=== PATIENT | female | born 1970 | race Caucasian/White ===

== ENCOUNTER 2022-02-21 13:38 | Emergency (ER) | payer OTHER, SELFPAY ==
--- NOTE | ~2022-02-21 | XR_ITS ---
EXAMINATION: XR elbow RT min 3V DATE: 02/21/2022 14:38 INDICATION: Right elbow pain. Right elbow hyperextension. TECHNIQUE: 4 views of right elbow were obtained. COMPARISON: None. FINDINGS: Bone alignment is normal. No fracture. Joint spaces are well maintained. There is an enthes ophyte at lateral humeral epicondyle. There is no elbow joint effusion. IMPRESSION: 1. No fracture. Reviewed, dictated and finalized at location A. IMPRESSION: 1. No fracture.
[2022-02-21 13:58] VITALS: BP 130/79; PULSE 103; RESP 18; TEMP 36.3; O2SAT 99
--- NOTE | 2022-02-21 14:47 | ED.UPPEXIN ---
HPI - Extremity Injury (Upper) General Chief Complaint: Extremity Injury, Upper Stated Complaint: work related injury Time Seen by Provider: 02/21/22 14:38 Source: patient and RN notes reviewed Mode of arrival: ambulatory Limitations: no limitations History of Present Illness HPI narrative: 51-year-old female presents concern for pain to the right upper extremity. 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 She reports her wrist and arm bent in an awkward position she immediately had pain in her wrist. She reports the wrist pain has turned into elbow pain, wrist pain has decreased significantly. She reports however now her elbow pain is significant and is radiating to the shoulder and into the side of the neck. She reports digits 3 and 4 feel like they are asleep. denies any neck pain at the time of the injury. She denies any blunt trauma. She denies bruising, swelling, redness, warmth, open skin. She reports she has seen her works telehealth doctor twice and was prescribed ibuprofen, methocarbamol, diclofenac gel. She reports she is using most things with minimal relief. Related Data Home Medications Medication Instructions Recorded Confirmed diclofenac sodium 1 % topical gel 1 ea topical DIRECTED 02/21/22 02/21/22 ibuprofen 800 mg tablet 800 mg TID 02/21/22 02/21/22 methocarbamol 750 mg tablet 750 mg HS 02/21/22 02/21/22 Allergies Allergy/AdvReac Type Severity Reaction Status Date / Time codeine Allergy Unknown Verified 02/21/22 14:11 ketorolac Allergy Unknown Verified 02/21/22 14:11 Review of Systems Review of Systems: CONSTITUTIONAL: Denies malaise, chills, sweats, or fever. SKIN: Denies rash or itching, open skin, laceration, abrasion, redness, warmth, swelling. MUSCULOSKELETAL: Reports right upper extremity pain NEUROLOGIC: Denies numbness, weakness All systems reviewed & are unremarkable except as noted in HPI and below [facility] Family History Family History (Updated 12/30/15 @ 23:19 by DOCTOR UNKNOWN) Other Acute myocardial infarction Social History Social History Smoking status: Never smoker Second hand tobacco smoke exposure: Yes Alcohol intake: never Comments At time of signature, agree with nursing past medical, surgical, social and family history. There is no relevant family history pertinent to the presenting complaint Exam Narrative: GENERAL: Well-appearing, well-nourished, and in no acute distress. HEAD: Normocephalic, atraumatic. EYES: PERRLA, conjunctivae clear NECK: Supple. CHEST: Speaks in full sentences. No respiratory distress. HEART: Regular rate and rhythm. Normal and equal peripheral pulses. EXTREMITIES: Right upper extremity has normal grossly strength and sensation, limited range of motion. No edema or ecchymosis. Normal sensation with sensitivity to light touch and pain. No point tenderness. No open wounds, no skin tenting, no devitalized tissue or atrophy, no trophic changes, no obvious deformity, alignment normal, nearby joints and structures intact. Distal pulses palpable and equal bilaterally, skin warm, dry, pink. Capillary refill less than 3 seconds. SKIN: Warm, dry, no rash. NEURO: Alert and oriented x3. PSYCH: Normal mood and affect Course Course Emergency Course: Patient is aware of diagnosis, understands and agrees to treatment plan. Anticipatory guidance given. Patient agrees to follow-up as directed and is aware of reasons to seek care at the emergency department. Portions of this record may have been created with voice recognition software Level of Care: Express Care Visit Vital Signs Vital signs: Vital Signs Temperature 97.4 F L 02/21/22 13:58 Pulse Rate 103 H 02/21/22 13:58 Respiratory Rate 18 02/21/22 13:58 Blood Pressure 130/79 02/21/22 13:58 Pulse Oximetry 99 02/21/22 13:58 Oxygen Delivery Room Air 02/21/22 13:58 Temperature
== END 2022-02-21 15:10 | disposition home or self-care (01) ==
PROVIDERS: Emergency Provider Nurse Practitioner; PCP Nurse Practitioner Adult Health
DX: M77.8 Other enthesopathies, not elsewhere classified (principal)
CPT/HCPCS: 73080; 99213; A4565; G0463

== ENCOUNTER 2022-03-21 15:57 | Outpatient (CLI) | payer OTHER, SELFPAY ==
--- NOTE | ~2022-03-21 | CT_ITS ---
EXAMINATION: CT abdomen pelvis wo con DATE: 03/21/2022 16:15 INDICATION: Right lower quadrant abdominal pain. Rectal pain. TECHNIQUE: Computed tomography (CT) of the abdomen and pelvis was performed without intravenous contr ast. Automated exposure control and iterative reconstruction technique were employed. The dose-length product was 1098.59 mGy-cm. COMPARISON: None. FINDINGS: The visualized portions of the lung bases demonstrate minimal atelectasis. No pleural effus ion. The heart size is normal. No pericardial effusion. There is diffuse hepatic steatosis. There are changes of cholecystectomy. The spleen, pancreas, adrenal glands, and kidneys are normal. There is n o urolithiasis. There are no dilated loops of bowel. The appendix is normal. There are no dilated loo ps of bowel. There are no pathologically enlarged lymph nodes. There is no free intraperitoneal fluid . There are changes of anterior and posterior fusion procedures at L5-S1. There is mild thoracolumbar spondylosis. IMPRESSION: 1. Diffuse hepatic steatosis. Reviewed, dictated and finalized at location B.
== END 2022-03-21 15:58 ==
LOC: MICIMG 15:58
PROVIDERS: PCP Nurse Practitioner Adult Health; Visit Provider Nurse Practitioner Adult Health
DX: R10.9 Unspecified abdominal pain (principal); K76.0 Fatty (change of) liver, not elsewhere classified
CPT/HCPCS: 74176

== ENCOUNTER 2022-03-24 09:38 | Outpatient (CLI) | payer OTHER, SELFPAY ==
--- NOTE | ~2022-03-24 | MR_ITS ---
EXAMINATION: MR elbow RT wo con DATE: 03/24/2022 10:31 INDICATION: Right elbow pain TECHNIQUE: Magnetic resonance imaging (MRI) of the right elbow was performed without intravenous cont rast. Sequences included coronal, axial, and sagittal PD-weighted FS FSE and coronal, axial, and sagi ttal PD-weighted FSE. COMPARISON: None FINDINGS: Osseous/other: Normal alignment. Normal marrow signal with no marrow edema, fracture, osteochondral lesion or abnor mal marrow replacing process. Tendons: Triceps, biceps brachii and brachialis tendons are normal. Mild tendinopathy without discrete tear at the medial and lateral epicondylar origins of the of the common flexor and common extensor tendon wa ds respectively. Ligaments: The medial and lateral collateral ligament complexes are normal. Cubital tunnel: Cubital tunnel is unremarkable with normal signal and caliber of the ulnar nerve. Fluid: Physiologic amount of fluid the elbow joint. IMPRESSION: 1. Mild tendinopathy without discrete tears at the medial and lateral epicondylar origins of the comm on flexor and extensor tendon wads respectively. Reviewed, dictated and finalized at location A. IMPRESSION: 1. Mild tendinopathy without discrete tears at the medial and lateral epicondyl ar origins of the common flexor and extensor tendon wads respectively.
== END 2022-03-24 09:39 | disposition home or self-care (01) ==
PROVIDERS: PCP Nurse Practitioner Adult Health; Visit Provider Orthopaedic Surgery
DX: M25.521 Pain in right elbow (principal)
CPT/HCPCS: 73221

== ENCOUNTER 2022-04-04 01:37 | Day surgery (SDC) | payer OTHER, SELFPAY ==
[2022-03-28 12:35] VITALS: BMI 32.5
--- NOTE | 2022-04-03 17:00 | PM.HPGS ---
History of Present Illness History of Present Illness Consent: Risks, benefits, and alternatives have been discussed and questions answered. Patient agrees to proceed with procedure. Chief complaint: Change in bowel habits Narrative: Anna Wall is a 51 year old female referred for colon cancer screening. Review of Systems Review of Systems: All systems reviewed & are unremarkable except as noted in HPI and below Gastrointestinal: Comments: Stools have been narrow lately PMFSH Past Medical History Medical History Claustrophobia Diabetes Type 2 Triceps strain Surgical History Surgical History Bartholin cyst removal H/O section x4 History of cholecystectomy History of hysterectomy 2000 History of knee surgery Left knee Skin cancer nose x3 with skin grafts Family History Family History Other Acute myocardial infarction Diabetes mellitus Hypertension Leukemia Lung cancer Neuropathy Social History Social History Smoking status: Never smoker Second hand tobacco smoke exposure: Yes Alcohol intake: never Substance use type: does not use Living arrangements: with family Gender identity (if verbalized by the patient): Female Spiritual care concerns: No Meds Home Medications and Allergies Home Medications Medication Instructions Recorded Confirmed Type ibuprofen 800 mg tablet 800 mg PO DAILY PRN Pain 02/21/22 04/04/22 History semaglutide 0.25 mg or 0.5 mg (2 0.5 mg subcut WEEKLY 03/28/22 04/04/22 History mg/1.5 mL) subcutaneous pen injector (Ozempic) Allergies Allergy/AdvReac Type Severity Reaction Status Date / Time codeine Allergy Unknown Nausea Verified 04/04/22 06:21 ketorolac Allergy Unknown Unknown Verified 04/04/22 06:21 Exam Const: General: alert Orientation/consciousness: patient oriented x3 Resp: Auscultation: clear to auscultation bilaterally Cardio: Rhythm: regular rhythm GI: GI Palp: Yes Soft to palpation and No Tenderness to palpation present (GI) Neuro: General: patient oriented x3 Assessment and Plan Assessment and plan (1) Colon cancer screening: Code(s): Z12.11 - Encounter for screening for malignant neoplasm of colon Status: Acute Assessment and Plan: Colonoscopy with possible biopsy or polypectomy or cautery or injection of substances.
[2022-04-04 06:22] LABS: Glucose Point of Care 334 mg/dl (65-105)
[2022-04-04 06:23] VITALS: BP 124/78; PULSE 106; RESP 16; TEMP 36.3; O2SAT 99
[2022-04-04] MEDS: LACTATED RINGERS 1,000 ML 150 ML IV CONT (06:25)
--- NOTE | 2022-04-04 07:18 | WPDANESEPPF ---
Anes - Initial Pre Proc Eval Procedure: Operation Date: 04/04/22 07:30 Proposed Procedures p Colonoscopy - Dawson Jones MD Date/Time: 04/04/22 07:18 Surgeon: Dawson Jones MD Pre Op Diagnosis: Change in bowel habits Patient Data Age: 51 Gender: F Height: 1.75 m Weight: 101.5 kg Last Vital Signs Temp 97.3 F L 04/04/22 06:23 Pulse 106 H 04/04/22 06:23 Resp 16 04/04/22 06:23 BP 124/78 04/04/22 06:23 Pulse Ox 99 04/04/22 06:23 O2 Del Method Room Air 04/04/22 06:23 Allergies Allergy/AdvReac Type Severity Reaction Status Date / Time codeine Allergy Unknown Nausea Verified 04/04/22 06:21 ketorolac Allergy Unknown Unknown Verified 04/04/22 06:21 Home Medications Medication Instructions Recorded Confirmed Type ibuprofen 800 mg tablet 800 mg PO DAILY PRN Pain 02/21/22 04/04/22 History semaglutide 0.25 mg or 0.5 mg (2 0.5 mg subcut WEEKLY 03/28/22 04/04/22 History mg/1.5 mL) subcutaneous pen injector (Ozempic) Laboratory Tests 04/04/22 06:19 POC Capillary Glucose 334 mg/dl H mg/dl (65-105) Patient hx anesthesia problems: none Family hx anesthesia problems: none Results Review: All pre-operative results and documents have been reviewed as part of the pre-operative evaluation. [facility] Past Medical History Medical History (Updated 04/03/22 @ 17:00 by Dawson Jones MD) Claustrophobia Diabetes Type 2 Triceps strain Surgical History Surgical History Bartholin cyst removal H/O section x4 History of cholecystectomy History of hysterectomy 2000 History of knee surgery Left knee Skin cancer nose x3 with skin grafts Family History Family History Other Acute myocardial infarction Diabetes mellitus Hypertension Leukemia Lung cancer Neuropathy Social History Social History Smoking status: Never smoker Second hand tobacco smoke exposure: Yes Alcohol intake: never Substance use type: does not use Living arrangements: with family Gender identity (if verbalized by the patient): Female Spiritual care concerns: No Anes - Eval Final PreProcedure Day of Procedure 04/04/22 07:18 Patient weight: obese Heart: regular rate and rhythm Lungs: clear to auscultation Neurological: alert and oriented Last oral intake: >/= 8 hours ASA classification: II Emergent: no Anesthetic plan: proceed Anesthesia type and monitoring: general GIVS and standard monitoring Results Review: All pre-operative results and documents have been reviewed as part of the pre-operative evaluation. Informed Consent: The patient's anesthetic plan and its attendant risks and benefits were discussed with the patient/family/POA. Questions were solicited and answers provided to the satisfaction of the patient/family/POA.
[2022-04-04 07:55] VITALS: BP 117/77; PULSE 95; RESP 16; O2SAT 96
[2022-04-04 08:04] VITALS: BP 114/77; PULSE 99; RESP 24; O2SAT 97
[2022-04-04 08:14] VITALS: BP 120/80; PULSE 91; RESP 21; O2SAT 96
== END 2022-04-04 08:23 | disposition home or self-care (01) ==
PROVIDERS: PCP Nurse Practitioner Adult Health; Visit Provider Internal Medicine Gastroenterology
PROC: 0DJD8ZZ Inspection of Lower Intestinal Tract, Via Natural or Artificial Opening Endoscopic (ICD-10-PCS; CPT 45378; principal; 2022-04-04 07:30)
DX: Z12.11 Encounter for screening for malignant neoplasm of colon (principal); E11.9 Type 2 diabetes mellitus without complications; Z79.899 Other long term (current) drug therapy; E66.9 Obesity, unspecified; Z68.33 Body mass index [BMI] 33.0-33.9, adult
CPT/HCPCS: 45378; 82948; J2704; J7120

== ENCOUNTER → 2022-04-20 14:39 | Outpatient (CLI) | payer OTHER, SELFPAY ==
--- NOTE | ~2022-04-20 | US_ITS ---
EXAMINATION: US transvaginal DATE: 04/20/2022 15:09 INDICATION: Rectal pain while sitting, patient status post hysterectomy TECHNIQUE: Multiple endovaginal sonographic images of the pelvis were obtained. COMPARISON: None. FINDINGS: The uterus is surgically absent. The right ovary measures 1.7 x 1.3 x 1.5 cm. Visualization is limited by adjacent bowel. The left ovary measures 2.3 x 1.2 x 1.2 cm. There is normal vascular f low in the ovaries. There is no free fluid in the pelvis. IMPRESSION: 1. No sonographic correlate for the patient's symptoms. Reviewed, dictated and finalized at location F. [employer]
== END ==
PROVIDERS: PCP Nurse Practitioner Adult Health; Visit Provider Nurse Practitioner Adult Health
DX: K62.89 Other specified diseases of anus and rectum (principal)
CPT/HCPCS: 76830

== ENCOUNTER 2024-01-27 16:56 | Emergency (ER) | payer OTHER, SELFPAY ==
[2024-01-27 17:24] VITALS: BP 138/82; PULSE 97; RESP 18; TEMP 36.6; O2SAT 99
--- NOTE | 2024-01-27 17:46 | ED.EYEPROB ---
HPI - Eye Problem General Chief complaint: Eye Problems Stated complaint: eye irritation Time Seen by Provider: 01/27/24 17:46 Source: patient Mode of arrival: ambulatory Limitations: no limitations History of Present Illness HPI Narrative: 53-year-old female presents with complaint of right eye redness, clear drainage, light sensitivity, pain for 3 days. Symptoms started while cleaning out should. Something flew into eye. Patient unsure if she still has foreign body present but states she did irrigate right eye at home. All systems reviewed and negative except as noted above. Related Data Allergies Allergy/AdvReac Type Severity Reaction Status Date / Time codeine Allergy Unknown Nausea Verified 01/27/24 17:28 ketorolac Allergy Unknown Rash Verified 01/27/24 17:28 Review of Systems Review of Systems: CONSTITUTIONAL: Denies fever, chills, or sweats. EYES: Denies visual changes . Reports right eye redness, light sensitivity, clear discharge. ENT: Denies rhinorrhea, congestion, sore throat, or otalgia. CARDIOVASCULAR: Denies chest pain, palpitations, or edema. RESPIRATORY: Denies cough or dyspnea. GASTROINTESTINAL: Denies abdominal pain, nausea, vomiting, or diarrhea. GENITOURINARY: Denies dysuria or hematuria. SKIN: Denies rash or itching. MUSCULOSKELETAL: Denies back pain, joint pain, or myalgia. NEUROLOGIC: Denies headache, numbness, or weakness. PSYCHIATRIC: Denies anxiety or depression. All other systems reviewed are negative, except as documented in HPI. [facility] Past Medical History Medical History Claustrophobia Diabetes Type 2 Strain of right elbow Triceps strain Surgical History Surgical History Bartholin cyst removal H/O section x4 History of cholecystectomy History of hysterectomy 2000 History of knee surgery Left knee Skin cancer nose x3 with skin grafts Family History Family History Other Acute myocardial infarction Diabetes mellitus Hypertension Leukemia Lung cancer Neuropathy Social History Social History Smoking status: Never smoker Second hand tobacco smoke exposure: Yes Alcohol intake: never Substance use type: does not use Living arrangements: with family Occupation/Education: occupation Gender identity (if verbalized by the patient): Female Spiritual care concerns: No Comments At time of signature, agree with nursing past medical, surgical, social and family history. There is no relevant family history pertinent to the presenting complaint. Exam Narrative: GENERAL: This is a well-nourished, well-developed patient, in no apparent distress. HEAD: normocephalic, atraumatic. EYES: PERRL. Sclera and conjunctivae right eye erythematous and injected. Clear drainage noted. Topical anesthetic was instilled with good anesthesia using 1gtt of opth anesthetic agent (tetracaine). Fluorescein stain of the R eye was performed. Corneal abrasion noted at 6 o'clock. NO FB, ulcer or dendritic lesions. Upper lid was everted and no FB or lesions were noted. Normal saline irrigation eye solution was performed and the patient tolerated the procedure well, no adverse reaction or complications. EARS: External ears mary NOSE: External nose normal NECK: Neck supple, non-tender without lymphadenopathy, masses or thyromegaly. CARDIOVASCULAR: Regular rate and rhythm without murmurs, gallops, or rubs. RESPIRATORY: Clear to auscultation. Breath sounds equal bilaterally. No wheezes, rales, or rhonchi. SKIN: warm, Dry, intact with no suspicious lesions or rash, good texture and turgor. NEURO: awake, alert, and oriented to person, place and time. There were no obvious focal neurologic abnormalities. EXTREMITIES: No joint tenderness, effusion
== END 2024-01-27 18:00 | disposition home or self-care (01) ==
PROVIDERS: Emergency Provider Nurse Practitioner Family; PCP Nurse Practitioner Adult Health
DX: S05.01XA Injury of conjunctiva and corneal abrasion without foreign body, right eye, initial encounter (principal); X58.XXXA Exposure to other specified factors, initial encounter; E11.9 Type 2 diabetes mellitus without complications
CPT/HCPCS: 99213; A9270; G0463

== ENCOUNTER 2025-03-23 08:26 | Emergency (ER) | payer OTHER, SELFPAY ==
[2025-03-23 08:35] VITALS: BP 121/63; PULSE 123; RESP 20; TEMP 36.7; O2SAT 97
--- NOTE | 2025-03-23 08:35 | ED.URI ---
HPI - URI/Sore Throat General Chief Complaint: Upper Respiratory Infection Stated Complaint: URI symptoms Time Seen by Provider: 03/23/25 08:41 Source: patient and RN notes reviewed Mode of arrival: ambulatory Limitations: no limitations History of Present Illness HPI Narrative: 54-year-old female presents with concern of for 11 day history of sinus congestion, drainage, cough, ear pain. She reports aches and fever. She has taken some [id number] medications without relief. MD elicited complaint: cough Related Data Allergies Allergy/AdvReac Type Severity Reaction Status Date / Time ketorolac Allergy Mild Rash Verified 03/23/25 08:29 codeine AdvReac Intermediate Nausea Verified 03/23/25 08:29 Review of Systems Review of Systems: CONSTITUTIONAL: Reports malaise, fever. EYES: Denies visual changes, redness, or discharge. ENT: Reports rhinorrhea, congestion, otalgia CARDIOVASCULAR: Denies chest pain, palpitations, or edema. RESPIRATORY: Reports cough. Denies dyspnea. GASTROINTESTINAL: Denies abdominal pain, nausea, vomiting, diarrhea SKIN: Denies rash or itching. MUSCULOSKELETAL: Reports myalgia. NEUROLOGIC: Reports headache. All systems reviewed & are unremarkable except as noted in HPI and below PMFSH Past Medical History Medical History (Updated 03/23/25 @ 08:50 by Patt Cota NP) Diabetes Type 2 Surgical History Surgical History Bartholin cyst removal Skin cancer nose x3 with skin grafts History of cholecystectomy History of hysterectomy 1999 History of knee surgery Left knee H/O section x4 Family History Family History (Updated 11/10/24 @ 12:00 by Jia Deras MA) Mother Diabetes mellitus Hypertension Father Cancer Grandparent Diabetes mellitus Grandparent Heart disease Other Acute myocardial infarction Leukemia Lung cancer Neuropathy Social History Social History (Updated 11/10/24 @ 12:01 by Jia Deras MA) Smoking status: Never smoker Second hand tobacco smoke exposure: Yes Alcohol intake: never Substance use type: does not use Do You Feel Safe in your Home?: Yes Lack of Transportation: No Lack of Food: Never True Current Housing: I Have Housing Concerned About Future Housing: No Difficulty Paying Gas/Electric Bills: No Difficulty Paying for Meds: No Currently Unemployed: No Education: Associate Degree Difficulty w/ Childcare or Family Care: No Living arrangements: with family Occupation/Education: occupation Gender identity (if verbalized by the patient): Female Spiritual care concerns: No Agree to blood products: Yes Comments At time of signature, agree with nursing past medical, surgical, social and family history. There is no relevant family history pertinent to the presenting complaint Exam Narrative: GENERAL: Nontoxic-appearing, well-nourished, and in no acute distress. HEAD: Normocephalic EYES: PERRLA, conjunctivae clear ENT: Nares clear, turbinates edematous and erythematous. Mucous membranes moist. TM pearly perrin with dull light reflex bilaterally; no tragal tenderness. Oropharynx not erythematous without lesions. Tonsils not enlarged and without exudate, no drooling, no hoarseness, no trismus, uvula midline. NECK: Supple. No lymphadenopathy CHEST: Clear to auscultation, breath sounds equal. No wheezing, rhonchi, rales, or stridor. No respiratory distress, speaks in full sentences. Cough note HEART: Regular rate and rhythm. No murmur heard. SKIN: Warm, dry, no rash. NEURO: Alert and oriented x3. PSYCH: Normal mood and affect Course Course Emergency Course: Patient is aware of diagnosis, understands and agrees to treatment plan. Anticipatory guidance given. Patient agrees to follow-up as directed and is aware of reasons to seek care at the emergency department. Portions of this record may have been created with voice recognition software Level of Care: Express Care Visit Vital Signs Vital signs: Reviewed. MDM - URI/Sore Throat MDM Narrative Medical decision making narrative: Differential diagnosis considered: Bradley virus, strep pharyngitis, allergic rhinitis, upper respiratory tract infection, sinusitis, rhinosinusitis, nasopharyngitis. viral pharyngitis, otitis media, otitis externa, pneumonia, bronchitis, viral cough syndrome, viral syndrome, and influenza. Exam findings show no acute concerns or changes; patient is non-toxic appearing and is in no distress. Patient is appropriate for outpatient treatment and follow-up. Lab Data Attestation: I reviewed the patient's lab results. Critical Care Time Critical Care Time Critical Care Time: No Discharge Plan Discharge Clinical Impression: Sinobronchitis Patient Disposition: Home Condition: Stable Instructions: Antibiotic Form, Acute Bronchitis (ED) Additional Instructions: Take medication as prescribed Recommend antihistamine such as Benadryl at night time and Zyrtec or Tessa during the day Cough syrup may cause drowsiness; avoid driving or take it at night time. Also, recommend symptomatic treatment includes: rest, fluids, and increase humidity of the air at home. Recommend Acetaminophen as directed on the bottle to reduce fever, pain, headache. Avoid smoking/second-hand smoke. Please schedule a follow-up visit with your personal physician for further evaluation and treatment within 3-5days. If your symptoms persist, change or worsen significantly before you can contact your personal physician then please, without delay, go to the emergency department for further evaluation. Patient Language: [place] Islander Prescriptions: New promethazine-DM 6.25-15 mg/5 mL syrup 5 ml PO Q4-6H PRN (Reason: cough) Qty: 120 0RF prednisone 20 mg tablet 40 mg PO DAILY 5 Days Qty: 10 0RF amoxicillin-pot clavulanate 875-125 mg tablet 1 tablet PO Q12H 10 Days Qty: 20 0RF Follow-up/Referrals: Alexandra Steiner APRN [Primary Care Provider, Family Practice] Time of Disposition: 08:51
--- OUTSIDE RECORDS SUMMARY | 2025-03-23 08:45 | XMS_ITS | Clinical Summary ---
Author Organization [facility] Address [address] [place] [address] Care Team Providers Care Psychotherapist Counselor Name Role Phone Unavailable Primary Care Provider Unavailabl e Source Comments [facility],non-owned Affiliates and Associated Physician Practices is amultiple site organization consisting of ambulatory clinics and hospital sitesin [place], [place], [place] and [place]. This disclosure is being madepursuant to the Care Everywhere program and may not contain all information available regarding this patient. Last updated 18.[facility] Social History Tobacco Use Types Packs/Day Years Used Date Smoking Tobacco: Never Assessed Comments Unknown Sex and Gender Information Value Date Recorded Sex Assigned at Not on file Legal Sex Female 6:12 PM CDT Gender Identity Not on file Sexual Orientation Not on file Plan of Treatment Health Maintenance Due Date Last Done Comments COLOGUARD (AGES 45-75) - COL ON CA SCREENING 1970 COLON MONITORING 1970 COLONOSCOPY - COLON CA SCREENING 1970 CT COLONOGRAPHY - COLON CA SCREENING 1970 Colorectal Cancer Screening 1970 FIT - COLON CA SCREENING 1970 FLEX SIG - COLON CA SCREENING 1970 LIPID TESTING 1970 MAMMOGRAM 1970 HIV SCREENING 1985 HEPATITIS C SCREENING 11/13/1988 DTAP/TDAP/TD VACCINES (1 - Tdap) 1989 HEPATITIS B VACCINE (1 of 3 - 19+ 3-dose series) 1989 PNEUMOCOCCAL VACCINE 50+ (1 of 1 - PCV) 2020 ZOSTER VACCINE (1 of 2) 2020 DEPRESSION SCREENING 06/03/2024 COVID-19 VACCINE (1 - 2023-2 5 season) 2025 INFLUENZA VACCINE (#1) 2025 HIB VACCINE Aged Out No longer eligi ble based on patient's age to complete this topic HPV VACCINE Aged Out No longer eligi ble based on patient's age to complete this topic MENINGOCOCCAL (Group B) VACC INE SHARED DECISION-MAKING Aged Out No longer eligibl e based on patient's age to complete this topic MENINGOCOCCAL GROUPS A/C/Y/W VACCINE Aged Out No longer eligible b ased on patient's age to complete this topic
--- OUTSIDE RECORDS SUMMARY | 2025-03-23 08:45 | XMS_ITS | Encounter Summary ---
Author Organization [facility] Care Team Providers Care Hvac Field Service Technician Name Role Phone No, Physician Primary Care Provider [phone] Eric Fox Primary Care Provider + Encounter Details Date Type Department Care Team (Latest Contact Info) Description 11/12/2017 Orders Only [facility] CLINCONV ProviderEstephania MD [address] [place] [address] Social History Tobacco Use Types Packs/Day Years Used Date Smoking Tobacco: Never Assessed Comments Unknown Sex and Gender Information Value Date Recorded Sex Assigned at Not on file 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 Historical Provider Final Res ult * PROCEDURE - RESULT (11/05/2017 12:00 AM CDT) Narrative 11/05/2017 12:00 AM CDT Ordered by an unspecified provider. us Historical Provider MD Final Res ult documented in this encounter Visit Diagnoses Not on filedocumented in this encounter Care Teams Hvac Field Service Technician Relationship Specialty Start Date End Date No, Physician PCP - General 02/17/20 10/20/22 Eric Fox PA [address] [place] [address] PCP - General Internal Medicine 10/21/22 documented as of this encounter
--- OUTSIDE RECORDS SUMMARY | 2025-03-23 08:45 | XMS_ITS | Clinical Summary ---
Author Organization [facility] Address [address] [place] [address] Care Team Providers Care Resident Associate Name Role Phone Eric Fox Primary Care Provider + Allergies Active Allergy Reactions Criticality Noted Date Comments Codeine Nausea only,Vomiting Reaction: NAUSEA, VOMITING, Gluten Other (See comments) Reaction: ABDOMINAL PAIN, Ketorolac Rash Reaction: RASH Medications metFORMIN (GLUCOPHAGE) 500 mg tablet TK 1 T PO BID 01/19/2020 Active Active Problems No known active problems Surgical History Surgery Date Site/Laterality Comments BIOPSY 02/24/2020 Nasal skin lesion Social History Tobacco Use Types Packs/Day Years Used Date Smoking Tobacco: Never Personal Safety Answer Date Recorded Getting School Help Needed Not on file 08/16 Comments No Sex and Gender Information Value Date Recorded Sex Assigned at Not on file 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 Gender Identity Not on file Sexual Orientation Not on file Obstetrics History Last Filed Vital Signs Vital Sign Reading Time Taken Comments Blood Pressure 145/84 10/21/2022 8:11 PM CDT Pulse 88 10/21/2022 8:11 PM CDT Temperature 36.7 C (98.1 F) 10/21/2022 3:10 PM CDT Respiratory Rate 16 10/21/2022 8:11 PM CDT Oxygen Saturation 99% 10/21/2022 8:11 PM CDT Inhaled Oxygen Concentration - - Weight 102.6 kg (226 lb 3.1 oz) 10/21/2022 3:10 PM CDT Height 172.7 cm (5' 8) 10/21/2022 3:10 PM CDT Body Mass Index 34.39 10/21/2022 3:10 PM CDT Plan of Treatment Health Maintenance Due Date Last Done Comments Colon Cancer Screening-Colonoscopy 1970 Depression Screening 1970 Hepatitis B Screening 1988 Regular Well Visit/Exam 18-64 1988 DTaP/Tdap/Td Vaccine (2 - Td or Tdap) 06/03/2014 06/03/2004, 08/17/2002 Breast Cancer Screening-Mammogram 03/09/2015 03/09/2014 Zoster Vaccine (1 of 2) 2020 Influenza Vaccine (#1) 2025 Hepatitis C Screening Completed 11/30/2013 Pneumococcal vaccine <65 Aged Out No longer eligible based on patient's age to complete this topic Procedures Procedure Name Priority Date/Time Associated Diagnosis Comments SCREENING MAMMOGRAM 2D BILATERAL Routine 03/09/2014 8:57 AM CDT HEPATITIS C ANTIBODY Routine 11/30/2013 9:36 PM CDT from Last 3 Months or Most Recently Relevant to Health Maintenance Results * Screening Mammogram 2D Bilateral (03/09/2014 8:57 AM CDT) Anatomical Region Laterality Modality Breast Bilateral Mammography 03/09/2014 8:57 AM CDT Impressions 03/09/2014 11:36 AM CDT No mammographic evidence of malignancy. Routine annual screening mammography is recommended. ASSESSMENT: BI-RADS: 1 NEGATIVE. The patient will be entered into a reminder system for an annual screening mammogram in 1 year. THIS IS AN ELECTRONICALLY VERIFIED REPORT 03/09/2014 11:33 AM: Jhonathan Kline M.D. Jhonathan Kline M.D. [place]:avi 11:33 AM 11:33 AM BM [EOD] Narrative 03/09/2014 11:36 AM CDT EXAMINATION: BILATERAL DIGITAL SCREENING MAMMOGRAM HISTORY: Routine screening. COMPARISON: 10/08/2002, 03/25/2007 FINDINGS: There has been no suspicious interval change. There are scattered areas of fibroglandular density. There is no dominant mass, suspicious calcification or architectural distortion. CAD was utilized to evaluate this mammogram. Procedure Note Provider, MD Estephania - 10/18/2020 EXAMINATION: BILATERAL DIGITAL SCREENING MAMMOGRAM HISTORY: Routine screening. COMPARISON: 10/08/2002, 03/25/2007 FINDINGS: There has been no suspicious interval change. There are scattered areas of fibroglandular density. There is no dominant mass, suspicious calcification or architectural distortion. CAD was utilized to evaluate this mammogram. IMPRESSION: No mammographic evidence of malignancy. Routine annual screeningmammography is recommended. ASSESSMENT: BI-RADS: 1 NEGATIVE. The patient will be entered into [facility] system for an annual screening mammogram in 1 year. THIS IS AN ELECTRONICALLY VERIFIED REPORT 03/09/2014 11:33 AM: Jhonathan Kline M.D. Jhonathan Kline M.D. [place]:avi 11:33 AM 11:33 AM [facility] [EOD] Antoni Edmonds MD IM MAMMO PROCEDURES Final Result * Hepatitis C antibody (11/30/2013 9:36 PM CDT) Hep C Ab NONREACT NONREACTIVE Comment: Siemens EcovisionaurXP using MAULIK (chemiluminescent immunoassay) technology. NONREACTIVE: Antibodies to Hepatitis C not detected. This does not exclude early acute Hepatitis C infection, possibility of exposure to Hepatitis C, antibodies below detection limit, or to lack of antibody reactivity to the antigen used in this assay. EQUIVOCAL: Antibodies to Hepatitis C may or may not be present. Sample to be confirmed by real-time PCR method. REACTIVE: Antibodies to Hepatitis C detected. 11/30/2013 9:36 PM CDT 11/30/2013 9:52 PM CDT Uma[facility] Cerda [facility] MICROBIOLOGY - GENERAL ORDER BRAULIO Final Result [facility] HISTORICAL RESULTS from Last 3 Months or Most Recently Relevant to Health Maintenance Insurance [facility] CHOICE PLUS [facility] CHOICE PLUS [facility] CHOICE PLUS [employer]IG[employer] Care Teams Resident Associate Relationship Specialty Start Date End Date Eric Fox PA [address] [place] [id number] PCP - General Internal Medicine 10/21/22
--- OUTSIDE RECORDS SUMMARY | 2025-03-23 08:45 | XMS_ITS | Clinical Summary ---
Author Organization 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 Gender Identity Not on file Sexual Orientation Not on file Plan of Treatment Health Maintenance Due Date Last Done Comments DTAP/TDAP/TD VACCINES (1 - Tdap) 1989 HEPATITIS B VACCINES (1 of 3 - 19+ 3-dose series) 11/01 HPV/Cotest (21-29) 11/19/1991 CERVICAL CANCER SCREENING 2000 HPV/Cotest (30-65) 2000 PAP SMEAR 2000 BREAST CANCER SCREENING 2010 COLORECTAL SCREENING 11/19/2015 Colorectal Cancer Screening 11/19/2015 FIT-DNA Q 3 years 11/19/2015 FIT/FOBT Q 1 year 11/19/2015 Flex Sig/CT Colonography Q 5 years 11/19/2015 ZOSTER VACCINE (1 of 2) 2020 INFLUENZA VACCINE (#1) 2025 Care Teams Figure Model Relationship Specialty Start Date End Date Kimmy Clark MD [address] [place] [address] PCP - General 05/20/15
--- OUTSIDE RECORDS SUMMARY | 2025-03-23 08:45 | XMS_ITS | Encounter Summary ---
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 Historical Provider Final Res ult * PROCEDURE - RESULT (11/28/2016 12:00 AM CDT) Narrative 11/28/2016 12:00 AM CDT Ordered by an unspecified provider. us Historical Provider Final Res ult * PROCEDURE - RESULT (11/27/2016 12:00 AM CDT) Narrative 11/27/2016 12:00 AM CDT Ordered by an unspecified provider. us Historical Provider Final Res ult documented in this encounter Visit Diagnoses Not on filedocumented in this encounter Care Teams Data Control Clerk Relationship Specialty Start Date End Date No, Physician PCP - General 02/17/20 10/20/22 Eric Fox PA [address] [place] [address] PCP - General Internal Medicine 10/21/22 documented as of this encounter
--- OUTSIDE RECORDS SUMMARY | 2025-03-23 08:45 | XMS_ITS | Data Portability ---
Author Organization [facility] [employer], Main Office Address [address] [place] [address] Assessment No assessment recorded. Plan of Treatment Reminders Order Date Submit Date Provider Last Modified By Organization Details Last Modified Time Details Appointments None recorded. Lab TSH, serum or plasma 2022 023 [email or web address] Not available 3 08:45:55 T4, free, serum 2022 023 [email or web address] Not available 3 08:45:55 vitamin B12 + folate, serum or blood 2022 023 [email or web address] 11 Not available 3 08:45:54 vitamin D, 25-hydroxy, total, serum 2022 023 [email or web address] 11 Not available 3 08:45:54 hemoglobin A1C, fingerstick 2022 023 [facility] [address] Rahul Anderson, [place], [address], 3 16:24:21 lipid panel, serum 2022 023 [email or web address] 11 Not available 3 08:45:54 CBC w/ auto diff 2022 023 [email or web address] 11 Not available 3 08:45:54 CMP, serum or plasma 2022 023 [email or web address] 11 Not available 3 08:45:54 CK (creatine kinase), total, serum 2022 023 [email or web address] 11 Not available 08:45:54 Referral diabetic ophthalmolo gy referral 2022 023 [facility], [address], [place], [address], 3 18:43:11 Procedures None recorded. Surgeries None recorded. Imaging None recorded. Medication Orders Ozempic 0.25 mg or 0.5 mg (2 mg/3 mL) subcutaneou s pen injector 2022 023 [email or web address] [id number], [address] [facility], [place], [place], [id number], 3 16:13:38 losartan 50 mg tablet 2022 023 [facility] #[id number], [address] [facility], [place], [place], [id number], 3 14:48:53 Patient TargetsNo targets recorded. Patient InstructionsNo instructions recorded. Reason for Referral Diabetic Ophthalmology Refer ral for Uncontrolled type 2 diabetes mellitus Referring Physician: Eric Fox, Family Medicine, Encounter Date: 10/01/2022 Results Created Date Observation Date Name Description Value Unit Range Abnormal Flag Note LastModifiedBy Organization Detail LastModifiedTime 10/02/19 23 10/01/2022 hemog lobin A1C, finge rstic k HgbA1C 11.3 Not Available [facility] [address] Rahul Anderson, [place], [address], 10/01/2022 14:52:53 02/22/20 22 02/21/2022 XR, elbow No observ ation record ed. [id number] [facility] [address], [place], [address], 08/01/2022 07:35:03 03/21/20 22 03/21/2022 CT, abdom en + pelvi s, w/o contr ast No observ ation record ed. [id number] [facility] [address], [place], [address], 08/01/2022 07:35:03 03/21/20 22 03/21/2022 CT, abdom en + pelvi s, w/o contr ast No observ ation record ed. [id number] [facility] [address], [place], [address], 08/01/2022 07:35:03 03/24/20 22 03/24/2022 MRI, elbow , w/o contr ast No observ ation record ed. [id number] [place] [address] [address], [place], [address], 08/01/2022 07:35:03 04/20/20 22 04/20/2022 imagi ng/di agnos tic resul t No observ ation record ed. [id number] [place] [address] [address], [place], [address], 08/01/2022 07:35:03 04/21/20 22 04/20/2022 US, pelvi s, compl ete No observ ation record ed. [id number], [place], [address], 08/01/2022 07:35:03 04/23/20 22 04/20/2022 US, trans vagin al No observ ation record ed. [email or web address] [facility] [address], [place], [address], 10/02/2022 10:13:36 Result Notes None recorded. Problems Name Problem SNOMED Code Status Onset Date Resolution Date Notes Provider Name and Address Organization Details Recorded Time Neuropathy due to diabetes mellitus 328807407 Active Not Available [facility] 3 07:29:56 Low back pain 923612791 Active Not Available [facility] 3 07:29:56 Sinusitis 34381967 Completed Not Available [facility] 3 07:29:56 Upper respirator y infection 34229610 Completed Not Available [facility] 3 07:29:57 Hyperlipid emia 56329437 Active Not Available [facility] 3 07:29:57 Candidiasi s of vagina 18280633 Completed Not Available [facility] 3 07:29:57 At increased risk for cardiovasc ular event 039262502 Active 2019 Not Available [facility] 3 07:29:57 Uncontroll ed type 2 diabetes mellitus 258203339 Active 2021 Not Available [facility] 3 07:29:57 Steatotic liver disease 326254023 Active 2021 Not Available [facility] 3 07:29:56 At increased risk of nutritiona l deficit 687216516 Active 2022 BENNY Fishman [address], [place] [address], [place], [address] , [facility] 3 14:54:07 Obese 038447083 Active 2022 BENNY Fishman [address], [place], [address] , [facility] 3 14:54:47 Problem Notes None recorded. Procedures Surgical History Date Name Laterality Status Provider Name and Address Organization Details Recorded Time section completed HOLLEY De Los Santos Yusef [place] [employer] [facility] 10/01/2022 14:30:52 Hernia Repair completed HOLLEY Alcantara Yusef [place] [employer] [facility] 10/01/2022 14:31:12 Hysterectomy completed HOLLEY Alcantara [place] [employer] [facility] [employer] [facility] 10/01/2022 14:31:19 Gallbladder Surgery completed HOLLEY Alcantara [place] [employer] [facility] [employer] [facility] 10/01/2022 14:31:25 excision of Bartholin's gland completed HOLLEY Alcantara Yusef [place] [employer] [facility] 10/01/2022 14:33:08 operation on Bartholin's gland completed HOLLEY Alcantara [facility] 10/01/2022 14:33:24 Disc replacement surgery completed Sabrina Gipson MA [facility] 10/01/2022 14:33:56 excision of lipoma completed Sabrina Gipson MA [facility] 10/01/2022 14:34:15 Remove tonsils and adenoids completed Sabrina Gipson MA [facility] 10/01/2022 14:34:42 Imaging Results None recorded. Procedure Notes None recorded. Medical Equipment None Reported. Allergies Allergen ID Allergen Name Allergen Category Reaction Reaction Severity Criticality Documentation Date Start Date Code Code System Note Provider Name and Address Organization Details Recorded Time 98142 ketorolac medicatio n rash severe Not available 08/01/2022 71282 RxNorm Not Available [facility] 3 07:34:59 07266 codeine medicatio n vomiting severe Not available 08/01/2022 2670 RxNorm Not Available [facility] 3 07:34:59 Medications Name Sig Start Date Stop Date Status Note LastModified by Organization Details LastModified Time Prescriptio n - Renewal active Not Available Not Available Not Available Prescriptio n - Prior Authorizati on Request active Not Available Not Available N ot Available losartan 50 mg tablet Take 1 tablet every day by oral route in the morning for 30 days. 2022 active Not Available Not Available Not Avai lable amoxicillin 500 mg capsule Take 1 capsule every 12 hours by oral route for 7 days. 03/17 completed Not Available Not Available Not Available metformin 500 mg tablet TAKE 2 TABLETS BY MOUTH TWICE DAILY 03/15 completed Not Available Not Available Not Available azithromyci n 250 mg tablet TAKE 2 TABLETS (500 MG) BY ORAL ROUTE ONCE DAILY FOR 1 DAY THEN 1 TABLET (250 MG) BY ORAL ROUTE ONCE DAILY FOR 4 DAYS active Not Available Not Available No t Available ibuprofen 800 mg tablet active Not Available Not Available Not Available simvastatin 10 mg tablet Take 1 tablet every day by oral route for 30 days. active Not Available Not Available No t Available Diflucan 150 mg tablet Take 1 tablet every week by oral route for 14 days. 03/17 completed Not Available Not Available Not Available ciprofloxac in 500 mg tablet TAKE 1 TABLET BY MOUTH EVERY 12 HOURS FOR 7 DAYS 03/15 completed Not Available Not Available Not Available oxycodone-a cetaminophe n 5 mg-325 mg tablet 09/06 completed Not Available Not Available Not Available lorazepam 0.5 mg tablet Take 1 po 30 minutes prior to dental visit - someone must drive to [facility]. active Not Available Not Available No t Available methocarbam ol 750 mg tablet TAKE 1 TABLET BY MOUTH AT BEDTIME 03/15 completed Not Available Not Available Not Available pravastatin 10 mg tablet Take 1 tablet every day by oral route at bedtime for 30 days. active Not Available Not Available No t Available benzonatate 100 mg capsule Take 1 capsule 3 times a day by oral route for 10 days. 03/17 completed Not Available Not Available Not Available hydrocodone 7.5 mg-acetamin ophen 325 mg tablet 09/06 completed Not Available Not Available Not Available methylpredn isolone 4 mg tablets in a dose pack Use as directed active Not Available Not Available No t Available amoxicillin 875 mg-potassiu m clavulanate 125 mg tablet Take 1 tablet every 12 hours by oral route for 10 days. 09/06 completed Not Available Not Available Not Available Bactrim DS 800 mg-160 mg tablet Take 1 tablet every 12 hours by oral route for 14 days. 03/17 completed Not Available Not Available Not Available nitrofurant oin monohydrate /macrocryst als 100 mg capsule 09/06 completed Not Available Not Available Not Available BD Ultra-Fine Short Pen Needle 31 gauge x 5/16 USE UTD FOR VICTOZA D active Not Available Not Available No t Available Januvia 100 mg tablet TAKE 1 TABLET BY MOUTH EVERY DAY 03/15 completed Hold Not Available Not Available Not Available diclofenac 1 % topical gel APPLY 2 GRAMS TOPICALLY TO THE AFFECTED AREA FOUR TIMES DAILY 03/15 completed Not Available Not Available Not Available OneTouch Verio test strips active Not Available Not Available Not Available Victoza 3-Allan 0.6 mg/0.1 mL (18 mg/3 mL) subcutaneou s pen injector INJECT 0.6MG UNDER THE SKIN FOR 1 WEEK; THEN INCREASE BY 0.6MG WEEKLY UNTIL INJECT 1.8MG DAILY DIRECTED 12/27 completed hold Not Available Not Available Not Available Ozempic 0.25 mg or 0.5 mg (2 mg/1.5 mL) subcutaneou s pen injector INJECT 0.5MG SUBCUTANE OUSLY ONCE WEEKLY DIRECTED active Not Available Not Available No t Available OneTouch Ultra Blue Test Strip active Not Available Not Available N ot Available OneTouch Ultra2 Meter active Not Available Not Available Not Available OneTouch Delica Plus Lancet 33 gauge active Not Available Not Available Not Available Ozempic 0.25 mg or 0.5 mg (2 mg/3 mL) subcutaneou s pen injector Inject 0.5 mg every week by subcutane ous route for 30 days. active Not Available Not Available No t Available Vitals Date Recorded Body height Body mass index (BMI) Body weight Body temperature Heart rate Oxygen saturation Oxygen saturation in Arterial blood by Pulse oximetry Systolic And Diastolic Provider Name and Address Organization Details Last Updated DateTime 3 175.26 cm 33.6 kg/m2 477265. 9 g 97.9 [degF] 106 /min 96 % 96 % 126/88 mm[Hg] HOLLEY Alcantara - [facility] [employer] [facility] 3 14:24:58 Date Recorded Oxygen saturation Oxygen saturation in Arterial blood by Pulse oximetry Heart rate Body temperature Body weight Systolic And Diastolic Provider Name and Address Organization Details Last Updated DateTime 2 95 % 95 % 94 /min 98.1 [degF] 416737. 47 g 122/84 mm[Hg] Not Available [facility] 3 07:28:59 Date Recorded Body mass index (BMI) Body height Body weight Provider Name and Address Organization Details Last Updated DateTime 04/17/2022 32.5 kg/m2 175.26 cm 77110.32 g Not Available [facility] 08/01/2022 07:29:01 Social History Question Answer Notes LastModified by Organizat ion Details LastModified Time Tobacco Smoking Status Never Smoker Not Available [facility] 08/01/2022 07:26:39 What Is Your Level Of Caffeine Consumption? Occasional [id number] Information not available 08/01/2022 In The 14 Days Before Symptom Onset, Have You Had Close Contact With A Laboratory-confirm ed COVID-19 While That Case Was Ill? No [id number] Information not available 08/01/2022 In The 14 Days Before Symptom Onset, Have You Had Close Contact With A Person Who Is Under Investigation For COVID-19 While That Person Was Ill? No [id number] Information not available 08/01/2022 What Type Of Diet Are You Following? REGULAR [id number] Information not available 08/01/2022 Do You Use Your Seat Belt Or Car Seat Routinely? Yes [email or web address] Information not available 10/01/2022 Do You Participate In Social Media? Yes [email or web address] Information not available 10/01/2022 Has Tobacco Cessation Counseling Been Provided? No [id number] Information not available 08/01/2022 Have You Recently Traveled Abroad? No [id number] Information not available 08/01/2022 Do You Have Any Dietary Restrictions? No [id number] Information not available 08/01/2022 Sex: Unknown Functional Status Question Answer Note LastModified by Organizat ion Details LastModified Time Do you use any illicit or recreational drugs? No [id number] Information not available 08/01/2022 Do you or have you ever used any other forms of tobacco or nicotine? No [id number] Information not available 08/01/2022 What is your level of alcohol consumption? None [id number] Information not available 08/01/2022 What is your exercise level? Moderate [id number] 26 Information not available 08/01/2022 Mental Status Question Answer Note LastModified by Organization D etails LastModified Time Do you feel stressed (tense, restless, nervous, or anxious, or unable to sleep at night)? [id number] [email or web address] Information not available 10/01/2022 Family History Relationship Description Onset Age of this Age Resolved Age Notes LastModified by Organization Details LastModified Time Mother Diabetes mellitus [email or web address] Not available 06/2022 14:27:09 Father Leukemia Not availa ble 10/01/2022 14:27:22 Father Carcinoma in situ of lung [email or web address] Not available 0 10/01/2022 14:27:46 Unspecified Relation Basosquamous carcinoma of skin self [email or web address] Not available 06/2022 14:28:22 Medical History No medical history recorded. Gynecological HistoryNo gynecological history recorded. Obstetrics History GPAL:G 0 P 0 0 0 0 Immunizations Vaccine Type Date Status Note Provider Nam e and Address Organization Details Recorded Time Tdap 06/03/2004 completed Not Available [facility] 08/01/2022 07:34:54 Past Encounters Encounter ID Performer Location Encounter Start Date Encounter Closed Date Diagnosis/Indication Diagnosis SNOMED-CT Code Diagnosis ICD10 Code Diagnosis IMO Codes Diagnosis Note [id number] Rita Sherwood MD [facility] [address] [place] [address] [place] [address] 09/07/2021 00:00:00 09/07/2021 09:27:26 [id number] [facility] [address] [place] [address] [place] [address] 03/15/2022 00:00:00 03/15/2022 13:00:17 [id number] Rita Sherwood MD [facility] [address] [place] [address] 04/17/2022 00:00:00 04/18/2022 10:07:29 [id number] Rita Sherwood MD [facility] [address] [place] [address] 10/01/2022 14:14:03 10/01/2022 15:04:09 Uncontrolled type 2 diabetes mellitus 236783122 E11.65 Hyperlipidemia 40153987 E78.5 At [facility] risk of nutritional deficit 716490689 Z91.89 Obese 704406485 E66.9 Health Concerns Section Related Observation LastModified by Organization Detai ls LastModified Time None Recorded Concern Status LastModified by Organization Details LastModified Time None Recorded Advance Directives Directive None Recorded Payers Insurance Date Sequence Insurance Name Policy Number Policy Gongora Covered Member ID Gongora Member ID Guarantor Name 10/01/2022 1 [employer] [id number] Eren Wall [id number] Anna Wall Notes Date Note Type Note Provider Name and Address Organization Details Recorded Time 10/01/2022 text/html ROS as noted in the HPI has been lax, but will get better. has compression socks on , so I'll check her feet next visit. out of ozempic for only a week BENNY Fishman [address], [facility] [address], [place], [address], [place] [facility] [place] [employer] [facility] [employer] [facility] 10/02/2022 10:13:54 OBGyn Episode No OBEpisode recorded.
--- OUTSIDE RECORDS SUMMARY | 2025-03-23 08:45 | XMS_ITS | Encounter Summary ---
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 Historical Provider Final Res ult * PROCEDURE - RESULT (03/06/2016 12:00 AM CDT) Narrative 03/06/2016 12:00 AM CDT Ordered by an unspecified provider. us Historical Provider MD Final Res ult documented in this encounter Visit Diagnoses Not on filedocumented in this encounter Care Teams Film Maker Relationship Specialty Start Date End Date No, Physician PCP - General 02/17/20 10/20/22 Eric Fox PA [address] [place] [address] PCP - General Internal Medicine 10/21/22 documented as of this encounter
--- OUTSIDE RECORDS SUMMARY | 2025-03-23 08:46 | XMS_ITS | Encounter Summary ---
Author Organization [employer] Address 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) Social History Tobacco Use Types Packs/Day Years Used Date Smoking Tobacco: Never Assessed Comments Unknown Sex and Gender Information Value Date Recorded Sex Assigned at Not on file Legal 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 Gender Identity Not on file Sexual Orientation Not on file documented as of this encounter Plan of Treatment Not on file documented as of this encounter Procedures Procedure Name Priority Date/Time Associated Diagnosis Comments POC GLUCOSE Routine 12/09/2006 12:25 PM CDT CBC WITH DIFFERENTIAL Routine 12/02/2006 11:45 AM CDT CBC WITH DIFFERENTIAL Routine 12/02/2006 11:45 AM CDT SEDIMENTATION RATE Routine 12/02/2006 11 :45 AM CDT BASIC METABOLIC PANEL Routine 12/02/2006 11:45 AM CDT documented in this encounter Results * POC GLUCOSE (12/09/2006 12:25 PM CDT) GLUCOSE POC 98 65 - 99 mg/dL INTERFACE SYSTEM 12/09/2006 12:2 5 PM CDT Bishop Hu MD POINT OF CARE TESTING Edite d Performing Organization Address [facility] de Phone Number INTERFACE SYSTEM Refer to clinic/hospital department * (ABNORMAL) BASIC METABOLIC PANEL (12/02/2006 11:45 AM CDT) GLUCOSE 164(H) 65 - 99 mg/dL INTERFACE SYSTEM CREATININE 0.65 0.51 - 0.95 mg/dL INTERFACE SYSTEM CALCIUM 8.8 8.4 - 10.2 mg/dL INTERFACE SYSTEM BUN 9 6 - 20 mg/dL INTERFACE SYSTEM SODIUM 139 135 - 145 mmol/L INTERFACE SYSTEM POTASSIUM 4.0 3.5 - 4.9 mmol/L INTERFACE SYSTEM CHLORIDE 103 96 - 108 mmol/L INTERFACE SYSTEM CO2 20(L) 22 - 30 mmol/L INTERFACE SYSTEM GFR, >60 >=60 mL/min/1. 7 sq meter INTERFACE SYSTEM GFR >60 >=60 mL/min/1. 7 sq meter INTERFACE SYSTEM Comment: Estimated GFR rate interpretative information for both Americans and non- Americans is available on the [facility] Intranet at: [email or web address] Select: Lab Policies and Procedures Select: Reference Ranges - GFR 12/02/2006 11:4 5 AM CDT Bishop Hu MD CHEMISTRY ORDERABLES Edited Performing Organization Address City/[facility] de Phone Number INTERFACE SYSTEM Refer to clinic/hospital department * CBC WITH DIFFERENTIAL (12/02/2006 11:45 AM CDT) NEUTROPHILS 65 45 - 70 % INTERFAC E SYSTEM LYMPHOCYTES 29 16 - 45 % INTERFAC E SYSTEM MONOCYTES 4 3 - 13 % INTERFACE SYSTEM EOSINOPHILS 2 0 - 7 % INTERFAC E SYSTEM BASOPHILS 0 0 - 2 % INTERFACE SYSTEM NEUTROPHIL ABSOLUTE 4.05 1.90 - 7.00 K/uL INTERFACE SYSTEM LYMPHOCYTE ABSOLUTE 1.77 0.70 - 4.50 K/uL INTERFACE SYSTEM MONOCYTE ABSOLUTE 0.27 0.10 - 1.30 K/uL INTERFACE SYSTEM EOSINOPHIL ABSOLUTE 0.12 0.00 - 0.70 K/uL INTERFACE SYSTEM BASOPHILS ABSOLUTE 0.01 0.00 - 0.20 K/uL INTERFACE SYSTEM 12/02/2006 11:4 5 AM CDT us Bishop Hu MD HEMATOLOGY ORDERABLES Edite d Performing Organization Address [facility] Phone Number INTERFACE SYSTEM Refer to clinic/hospital department * CBC WITH DIFFERENTIAL (12/02/2006 11:45 AM CDT) WBC 6.2 4.0 - 9.8 K/uL INTERFACE SYSTEM RBC 4.71 3.90 - 4.90 M/uL INTERFACE SYSTEM HEMOGLOBIN 13.3 11.8 - 14.8 g/dL INTERFACE SYSTEM HEMATOCRIT 39.2 35.5 - 44.0 % INTERFACE SYSTEM MCV 83.2 82.0 - 99.0 fL INTERFACE SYSTEM MCH 28.2 27.2 - 32.6 pg INTERFACE SYSTEM MCHC 33.9 31.5 - 35.5 % INTERFACE SYSTEM RDW 13.8 11.5 - 14.5 % INTERFACE SYSTEM RDW-STDEV 42.0 37.1 - 48.7 fL INTERFACE SYSTEM PLATELETS 239 140 - 350 K/uL INTERFACE SYSTEM MPV 12.2 9.3 - 12.4 fL INTERFACE SYSTEM 12/02/2006 11:4 5 AM CDT us Bishop Hu MD HEMATOLOGY ORDERABLES Edite d Performing Organization Address [facility] Phone Number INTERFACE SYSTEM Refer to clinic/hospital department * (ABNORMAL) SEDIMENTATION RATE (12/02/2006 11:45 AM CDT) ESR (SEDIMENTATION RATE) 37(H) 0 - 20 mm/hr INTERFACE SYSTEM 12/02/2006 11:4 5 AM CDT us Bishop Hu MD HEMATOLOGY ORDERABLES Edite d Performing Organization Address [facility] Phone Number INTERFACE SYSTEM Refer to clinic/hospital department documented in this encounter Visit Diagnoses Diagnosis Displacement of lumbar intervertebral disc without myelopathy- Primary documented in this encounter Care Teams Horticultural Specialty Grower Relationship Specialty Start Date End Date Kimmy Clark MD [address] [address] PCP - General 05/20/15 documented as of this encounter
== END 2025-03-23 08:53 | disposition home or self-care (01) ==
PROVIDERS: Emergency Provider Nurse Practitioner; PCP Nurse Practitioner Adult Health
DX: J40 Bronchitis, not specified as acute or chronic (principal); J32.9 Chronic sinusitis, unspecified; E11.9 Type 2 diabetes mellitus without complications
CPT/HCPCS: 99213; G0463